=== PATIENT | male | born 1990 | race Caucasian/White ===

== ENCOUNTER 2017-03-29 01:17 | Emergency (ER) | payer SELFPAY ==
[2017-03-29 01:53] VITALS: BP 135/88
== END 2017-03-29 01:53 | disposition home or self-care (01) ==
LOC: ED 01:17
DX: L02.31 Cutaneous abscess of buttock (principal); F14.10 Cocaine abuse, uncomplicated; Z88.0 Allergy status to penicillin

== ENCOUNTER 2018-08-18 23:11 | Emergency (ER) | payer OTHER ==
[~2018-08-18] VITALS: Ht 180.3 cm; Wt 93.0 kg
[2018-08-18 23:13] VITALS: Ht 180.3 cm; Wt 93.0 kg
[2018-08-19 01:00] VITALS: BP 121/86
== END 2018-08-19 01:00 | disposition other institution (70) ==
LOC: ED 23:11
DX: E11.65 Type 2 diabetes mellitus with hyperglycemia (principal); Z88.0 Allergy status to penicillin
CPT/HCPCS: 82962; J7030

== ENCOUNTER 2018-08-18 23:11 | Emergency (ER) | payer OTHER | END 2018-08-19 01:00 | disposition other institution (70) | LOC: ED 23:11 | DX: Z02.89 Encounter for other administrative examinations (principal) ==